=== PATIENT | male | born 1995 | race Caucasian/White ===

== ENCOUNTER 2018-08-01 18:33 | Emergency (ER) | payer BC ==
[~2018-08-01] VITALS: Ht 190.5 cm; Wt 90.9 kg
[2018-08-01 18:37] VITALS: BP 136/86; TEMP 98.2
[2018-08-01] MEDS ORDERED: LEVOXYL0.05 MG PO (18:52)
[2018-08-01 21:32] VITALS: PULSE 82
== END 2018-08-01 21:32 | disposition home or self-care (01) ==
LOC: COL.ER 18:33
DX: S62.002A Unspecified fracture of navicular [scaphoid] bone of left wrist, initial encounter for closed fracture (principal); S52.122A Displaced fracture of head of left radius, initial encounter for closed fracture; S52.121A Displaced fracture of head of right radius, initial encounter for closed fracture; S01.81XA Laceration without foreign body of other part of head, initial encounter; W01.198A Fall on same level from slipping, tripping and stumbling with subsequent striking against other object, initial encounter
CPT/HCPCS: Q4021; Q4050

== ENCOUNTER 2018-08-12 10:40 | Emergency (ER) | payer BC ==
[~2018-08-12 10:40] MED LIST: LEVOXYL0.05 MG PO
[2018-08-12 10:45] VITALS: PULSE 73; TEMP 97.6
== END 2018-08-12 11:00 | disposition home or self-care (01) ==
LOC: COL.ER 10:40
DX: S01.81XD Laceration without foreign body of other part of head, subsequent encounter (principal); X58.XXXD Exposure to other specified factors, subsequent encounter